=== PATIENT | female | born 1940 | race Hispanic/Latino ===

== ENCOUNTER 2017-04-24 06:09 | Day surgery (SDC) | payer MEDICARE, OTHER ==
[2017-04-14 10:06] VITALS: BMI 25.1
[2017-04-24] MEDS ORDERED: Bupivacaine 0.5% Inj(30mL) IJ ONE (07:16)
[2017-04-24] MEDS ORDERED: Lidocaine 1% Inj (20ml) IJ ONE ×2 (07:16→07:55)
[2017-04-24] MEDS ORDERED: Clindamycin 600 MG in Sodium Chloride 0.9% 100 ML IVPB ONE (07:16)
[2017-04-24] MEDS ORDERED: Sodium Chloride 0.9% 1,000 ML IV SCH (07:30)
[2017-04-24] MEDS ORDERED: Propofol 10 mg/ml Inj (20 ML) ONE (07:52)
[2017-04-24] MEDS ORDERED: Lactated Ringer's 1,000 ML IV ONE (07:55)
--- NOTE | 2017-04-24 07:56 | CP.PCM.PN ---
Subjective - Date & Time of Evaluation Date of Evaluation: 04/24/17 Time of Evaluation: 07:53 - Subjective Subjective: 76 y/o female with PMH of atrial fibrillation seen in SDS. Pt is aware she is having surgery on both feet this morning. Pt admits to having pain in the left foot with a bony prominence for over a year. Pt also states she has had pain in the R foot 4th digit where previously had hammertoe surgery several years ago. Pt states the R 4th digit has been bothering her for over a year as well. Pt denies F/C/N/V/SOB. PSH: multiple foot surgeries B/L, hernia repair, R knee surgery, removal of ovary, breast implant surgery All: Penicillins Social: social EtOH; denies cigarette or illicit drug use Objective - Vital Signs/Intake and Output Vital Signs (last 24 hours): Temp Pulse Resp BP Pulse Ox 97.9 F 54 L 18 135/70 95 04/24/17 06:38 04/24/17 06:38 04/24/17 06:38 04/24/17 06:38 04/24/17 06:38 - Medications Medications: Current Medications Bupivacaine HCl (Marcaine 0.5%) 30 ml IJ ONCE ONE Stop: 04/24/17 07:17 Clindamycin Phosphate 600 mg/ (Sodium Chloride) 54 mls @ 54 mls/hr IVPB ONCE ONE Stop: 04/24/17 08:15 Sodium Chloride (Sodium Chloride 0.9%) 1,000 mls @ 0 mls/hr IV .Q0M EFRAIN PRN Reason: As Directed Stop: 04/25/17 07:16 Lidocaine HCl (Lidocaine 1% (20ml)) 20 ml IJ ONCE ONE Stop: 04/24/17 07:17 - Constitutional Appears: Well, Non-toxic, No Acute Distress - Extremities Exam Additional comments: Vasc: DP/PT 2/4 B/L. CFT < 3 sec to all digits. Temperature gradient warm to cool B/L. No pedal edema Derm: Skin is well-hydrated. No open lesions, no erythema, no interdigital maceration, no clinical signs of infection Neuro: Protective sensation grossly intact Ortho: Adductovarus deformity B/L. Surgical scars fully healed noted to B/L 1st rays, B/L 5th digits, and lesser digits. Tenderness upon palpation of L foot 4th interspace dorsal exostosis. Tenderness upon deep palpation of dorsum of R 4th digit - Neurological Exam Neurological Exam: Alert, Awake, Oriented x3 - Psychiatric Exam Psychiatric exam: Normal Affect, Normal Mood Assessment and Plan - Assessment and Plan (Free Text) Assessment: 76 y/o female with painful L foot 4th interspace dorsal exostosis and R foot painful 4th digit hammertoe Plan: Pt was seen and examined in SDS Pt NPO status was confirmed All Pre-op testing and clearance was in the chart Pt has exhausted all conservative treatment at this time and is opting for surgical intervention Pt was explained procedure and post-operative course All pt's questions were answered to satisfaction No guarantees were made Pt understands all risks, benefits and complications of procedure Pt will follow-up with Dr. Barton
--- NOTE | 2017-04-24 08:03 | CP.SDSHP ---
Same Day Surgery H & P - History Proposed Procedure: exostectomy L 4th dorsal interspace, hammertoe correction R 4th digit Pre-Op Diagnosis: painful L 4th digit dorsal exostosis, painful R 4th digit hammertoe - Previous Medical/Surgical History Cardiac: Other (atrial fibrillation) Pain: 4.Moderate Pain Previous Surgical History: B/L bunion surgery, B/L hammertoes repaired, hernia repair, R knee surgery, removal of ovary, breast implant surgery - Allergies Allergies: Allergies Penicillins Allergy (Verified 04/24/17 06:40) SWELLING - Physical Exam General Appearance: well nourished, NAD Vital Signs: Vital Signs 04/24/17 06:38 Temperature 97.9 F Pulse Rate 54 L Respiratory 18 Rate Blood Pressure 135/70 O2 Sat by Pulse 95 Oximetry Mental Status: Alert & Oriented x3 Neuro: WNL - {Optional Preform as Required} Integument: WNL Ortho: Other (painful R 4th digit with hammertoe deformity, L 4th interspace dorsal exostosis) - Impression Impression: Pt was seen and examined in [facility]. Pt NPO status was confirmed. All Pre-op testing and clearance was in the chart. Pt has exhausted all conservative treatment at this time and is opting for surgical intervention. Pt was explained procedure and post-operative course. All pt's questions were answered to satisfaction. No guarantees were made. Pt understands all risks, benefits and complications of procedure. Pt will follow-up with Dr. Barton - Date & Time Date: 04/24/17 Time: 08:03 Short Stay Discharge - Short Stay Discharge Admitting Diagnosis/Reason for Visit: M20.41 Disposition: HOME/ ROUTINE Referrals: Edilberto Dumont MD [Primary Care Provider] - Follow-up: Dr. Barton's office Instructions: RICE Therapy (GEN) Additional Instructions (Diet, Activity): - Patient evaluated bedside in recovery s/p surgical procedure. - After surgical procedure patient in NAD - (+) Void, (+) Appetite - Capillary refill time <3s and NVSI intact. - Patient denies complaints at this time - Post operative instructions and plan of care explained to patient at length. - Pt. acknowledges understanding. - Patient stable for DC per podiatric surgery Progress Note/Discharge Note with Instructions: Patient in good/stable condition for discharge home. Pt to resume medications per medical reconciliation. Resume regular diet. Please keep dressing clean, dry, & intact to surgical site, use plastic bag over bandage for showering, wear post op shoe at all times when ambulating Call clinic if you see signs of infection (redness, swelling, malodor) Please make an appointment to see Dr. Barton in office/clinic within 1 week for post-op check.
[2017-04-24] MEDS ORDERED: Bupivacaine 0.5% 50 ML IJ ONE (08:20)
[2017-04-24] MEDS ORDERED: Oxycodone/Acetaminophen 5/325 mg Tab PO PRN ×2 (09:09)
[2017-04-24] MEDS ORDERED: Lactated Ringer's 1,000 ML IV SCH (09:11)
--- NOTE | 2017-04-24 09:14 | PCM.SURG1 ---
Surgeon's Initial Post Op Note - Surgeon's Notes Surgeon: Dr. Barton Brass Wind Instrument Maker: Maxine Aguillon PGY-1, Rene Carlisle PGY-1 Type of Anesthesia: General LMA, Local Anesthesia Administered By: Dr. Jauregui Pre-Operative Diagnosis: painful R 4th digit hammertoe, painful L 4th interspace dorsal exostosis Operative Findings: see operative report. I: 11 cc 1% Lidocaine plain pre-op, 9 cc 0.5% Marcaine plain post-op. M: 3-0 Vicryl, 4-0 Vicryl, 4-0 Nylon, 5-0 Nylon. tourniquet time 20 min R, 24 min L Post-Operative Diagnosis: same Operation Performed: R 4th digit hammertoe arthroplasty, L 4th dorsal interspace exostectomy Specimen/Specimens Removed: none Estimated Blood Loss: EBL {In ML}: 1 Blood Products Given: N/A Drains Used: No Drains Post-Op Condition: Good Date of Surgery/Procedure: 04/24/17 Time of Surgery/Procedure: 08:00
[2017-04-24 12:17] VITALS: PULSE 54; RESP 18; TEMP 98.1
[2017-04-24 13:16] VITALS: BP 120/48; O2SAT 95
--- NOTE | 2017-04-24 15:59 | RAD ---
PROCEDURE: Bilateral feet 04/24/2017 HISTORY: Status post bilateral foot surgery COMPARISON: No prior study available for comparison FINDINGS: Left foot findings: The current study reveals joint replacement at the left 1st MTP joint however bony overgrowth surrounding the prosthesis appears have extended into the joint space margin as well with prominent lateral osteophyte arising from the distal margin of left 1st metatarsal. Apparent postoperative fusion changes of the proximal and distal phalanges. Questionable postop changes distal 5th metatarsal. Right foot findings: Joint replacement right 1st MTP joint. There appears to have been partial and or complete resection of the distal phalanx right 1st toe. Slight bony productive changes distal lateral 1st metatarsal is proximal to the prosthesis. . Questionable postoperative changes distal 5th metatarsal. No definitive evidence of cortical destructive changes seen at this time. 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 Exuberant bony overgrowth noted at the level of the left 1st MTP joint. Probable fusion left proximal and distal phalanges 1st toe. Apparent resection of the distal phalanx right 1st toe
--- NOTE | 2017-05-14 01:16 | OP ---
PROCEDURE DATE: 04/24/2017 PREOPERATIVE DIAGNOSES: Painful right fourth digit hammertoe, painful left fifth metatarsal head dorsal exostosis. POSTOPERATIVE DIAGNOSES: Painful right fourth digit hammertoe, painful left fifth metatarsal head dorsal exostosis. NAME OF THE PROCEDURE: Left fifth metatarsal head exostectomy, right fourth digit hammertoe arthroplasty. SURGEON: Dr. Denver Barton, DPM MACHINE GRINDER: Dr. Maxine Aguillon, PGY1 and Dr. Rene Carlisle, PGY1. ANESTHESIA: IV sedation with local. ANESTHESIA ADMINISTERED BY: Dr. Juaregui. INDICATIONS: The patient is a 76-year-old female with the above diagnoses. The patient has exhausted conservative treatment at this time and now requires surgical intervention. The patient signed the consent after careful explanation of risks, benefits, complications and alternatives for the surgical procedure. No guarantees were given nor implied. N.p.o. status was confirmed prior to taking the patient to the OR. PREPARATION: The patient was brought to the operating room and placed on the operating room table in the supine position. After induction of IV sedation, the patient received a total of 11 mL of 1% lidocaine plain in local block fashion to bilateral feet. Once local anesthesia was achieved, the foot was then prepped and draped in usual sterile manner. Pneumatic ankle tourniquet was applied to bilateral ankle and was set at 250 mmHg. DESCRIPTION OF PROCEDURE: Procedure #1: Left fifth metatarsal head exostectomy. Using an Esmarch, left foot was exsanguinated and tourniquet was inflated at 250 mmHg. Attention was driven to the dorsolateral aspect of the fifth metatarsal head where the exostosis was appreciated. Using a marking pen, approximately 2 cm linear longitudinal line was drawn at the level of the exostosis. Using a #15 blade, incision was placed over the planned site. The incision was then deepened through subcutaneous tissue with care being taken to identify and retract all vital neurovascular structures. At this time, the exostosis was visualized at the level of the dorsolateral aspect of the fifth metatarsal head. Using the bone rasp, the exostosis was shaved and smoothened. At this time, bulb syringe was used and the site was copiously flushed and irrigated with normal saline. At this point, subcutaneous tissue was reapproximated and 3-0 Vicryl was used to bring the structures back together. 4-0 nylon was used at this time to reapproximate the skin and the incision site was closed. At this time, the tourniquet from the left leg was deflated at 24 minutes. Procedure #2: Right fourth digit hammertoe arthroplasty. Using an Esmarch, right foot was exsanguinated and tourniquet was inflated at 250 mmHg. Attention was then directed to the dorsal aspect of the fourth digit right foot where a linear longitudinal incision was made extending from PIPJ to the level of MTPJ. The incision was deepened through subcutaneous tissue with care being taken to identify and retract all vital neurovascular structures. At this time, a transverse tenotomy and capsulotomy was performed to the proximal interphalangeal joint of the fourth digit, right foot. The head of the proximal phalanx was then freed from its capsular and ligamentous attachment. Next, utilizing the oscillating saw, the head of the proximal phalanx was resected and passed from the operative site. The wound was then flushed with copious amount of sterile normal saline. At this time, the tendon was brought back together using a 3-0 Vicryl. The skin was reapproximated and brought together using a 5-0 nylon and the incision site was closed. At this time, the tourniquet from the right leg was deflated at 20 minutes. 9 cc in total 0.5% Marcaine plain was injected to bilateral feet. Bilateral feet were then dressed using Betadine-soaked Adaptic, DSD, and Kerlix. Immediate capillary refill time was noted to the right foot, which appeared to be within normal limits. The attending was present during the case. POSTOPERATIVE CONDITION: The patient tolerated the anesthesia and procedure well and was escorted to the recovery room with vital signs stable and neurovascular status intact to bilateral feet. This patient will follow up with Dr. Barton as an outpatient. Maxine Aguillon DPM Denver Barton DPM [facility]OH[facility]
== END 2017-04-24 14:20 | disposition home or self-care (01) ==
LOC: H.OPSURG 06:09
PROVIDERS: ATTEND Podiatrist Foot & Ankle Surgery
DX: M20.41 Other hammer toe(s) (acquired), right foot (principal)
CPT/HCPCS: 28285; 73620; 88304; 88311; J2405; J2704; J3010; J7030; J7120

== ENCOUNTER 2017-12-04 09:26 | Emergency (ER) | payer MEDICARE, OTHER ==
[2017-12-04 09:32] VITALS: BP 147/75; PULSE 57; RESP 20; TEMP 98.5; BMI 24.5
[2017-12-04 09:37] VITALS: O2SAT 98
--- NOTE | 2017-12-04 10:36 | RAD ---
PROCEDURE: Right Hip Radiographs. HISTORY: right hip pain no fall COMPARISON: None. FINDINGS: BONES: No acute fracture. Small ossicle in the region of the right hip joint. JOINTS: Mild narrowing. SOFT TISSUES: Normal. OTHER FINDINGS: None. IMPRESSION: No demonstrated fracture or dislocation. Small ossicle in the region of the right hip joint.
--- NOTE | 2017-12-04 12:43 | ED PDOC ---
Lower Extremity Pain/Injury Time Seen by Provider: 12/04/17 09:40 Chief Complaint (Nursing): Lower Extremity Problem/Injury Chief Complaint (Provider): right side of the hip pain History Per: Patient History/Exam Limitations: no limitations Onset/Duration Of Symptoms: Days (12/04/17) Additional Complaint(s): 77 year old female with a past medical history of hypertension presents to the ED complaining of pain on the right side of the hip and butt onset today morning when she tried to turn in bed. Reports the pain becomes worse when she bears weight by standing or movement. States she feels better when she lays down. Denies any other pain, injuries, shortness of breath, or chest pain. PMD: Nikita Mckeon III, MD - Hip Currently Unable To: Bear Weight, Bend Or Move Past Medical History Reviewed: Historical Data, Nursing Documentation, Vital Signs Vital Signs: Last Vital Signs Temp 98.5 F 12/04/17 09:30 Pulse 57 L 12/04/17 09:30 Resp 20 12/04/17 09:30 BP 147/75 12/04/17 09:30 Pulse Ox 98 12/04/17 09:34 - Medical History PMH: Arthritis, Atrial Fibrillation, Bronchitis, HTN, Seizures Denies: Chronic Kidney Disease - Surgical History Surgical History: Appendectomy, Tonsillectomy - Family History Family History: States: Unknown Family Hx - Immunization History Hx Pneumococcal Vaccination: Yes - Home Medications Home Medications: Ambulatory Orders Medication Instructions Recorded Albuterol Sulfate [Albuterol Hfa] 0.09 mg IH Q4 PRN #1 ml 04/13/15 Digoxin [Digitek] 0.375 mg PO DAILY 04/13/15 Levetiracetam [Keppra] 500 mg PO Q12H 04/13/15 Propafenone HCl [Rythmol Sr] 425 mg PO BID 04/13/15 Rivaroxaban [Xarelto] 20 mg PO QPM 04/13/15 - Allergies Allergies/Adverse Reactions: Allergies Allergy/AdvReac Type Severity Reaction Status Date / Time Penicillins Allergy SWELLING Verified 12/04/17 09:34 Review of Systems ROS Statement: Except As Marked, All Systems Reviewed And Found Negative Cardiovascular: Negative for: Chest Pain Respiratory: Negative for: Shortness of Breath Musculoskeletal: Positive for: Other (right hip pain) Physical Exam - Reviewed Nursing Documentation Reviewed: Yes Vital Signs Reviewed: Yes - Physical Exam Appears: Positive for: Well, Non-toxic, No Acute Distress Head Exam: Positive for: ATRAUMATIC, NORMAL INSPECTION, NORMOCEPHALIC Skin: Positive for: Normal Color, Warm, Dry Eye Exam: Positive for: EOMI, Normal appearance, PERRL ENT: Positive for: Normal ENT Inspection Neck: Positive for: Normal, Painless ROM, Supple. Negative for: Decreased ROM Cardiovascular/Chest: Positive for: Regular Rate, Rhythm. Negative for: Murmur Respiratory: Positive for: Normal Breath Sounds. Negative for: Decreased Breath Sounds, Accessory Muscle Use, Wheezing, Respiratory Distress Gastrointestinal/Abdominal: Positive for: Normal Exam, Bowel Sounds, Soft. Negative for: Tenderness, Guarding, Rebound Back: Positive for: Normal Inspection. Negative for: L CVA Tenderness, R CVA Tenderness Extremity: Positive for: Normal ROM, Tenderness (right-side of hip (bottom butt) ). Negative for: Swelling Neurologic/Psych: Positive for: Alert, Oriented (x3). Negative for: Motor/ Sensory Deficits - ECG O2 Sat by Pulse Oximetry: 98 (RA) Pulse Ox Interpretation: Normal Medical Decision Making Medical Decision Making: Time: 0956 Initial Impression: Atraumatic Hip Pain Differential Diagnosis includes but is not limited to: Musculoskeletal pain less likely fracture or dislocation Initial Plan: --Motrin 400mg --HIP MIN 2V w/ Pelvis RT [RAD] --Reevaluation Time: 1034 PROCEDURE: Right Hip Radiographs. FINDINGS: BONES: No acute fracture. Small ossicle in the region of the right hip joint. JOINTS: Mild narrowing. SOFT TISSUES: Normal. OTHER FINDINGS: None. IMPRESSION: No demonstrated fracture or dislocation. Small ossicle in the region of the right hip joint. Time: 1140 Patient improved after Motrin and can ambulate in ED with steady gait. Clinical Impression: Hip Pain Upon provider evaluation patient is medically stable, and requires no further treatment in the ED at this time. Patient will be discharged. Counseling was provided and all questions were answered regarding diagnosis and need for follow up with PMD. There is agreement to discharge plan. Return if symptoms persist or worsen. Scribe Attestation: Documented by Juan C Pelletier, acting as a scribe for Bev Victor MD Provider Scribe Attestation: All medical record entries made by the Scribe were at my direction and personally dictated by me. I have reviewed the chart and agree that the record accurately reflects my personal performance of the history, physical exam, medical decision making, and the department course for this patient. I have also personally directed, reviewed, and agree with the discharge instructions and disposition. Disposition - Clinical Impression Clinical Impression: Hip pain, right - Patient ED Disposition Is Patient to be Admitted: No - Disposition Referrals: Nikita Mckeon III, MD [Staff Provider] - Disposition: Routine/Home Disposition Time: 11:58 Condition: GOOD Additional Instructions: Take motrin or alleve for pain. Apply ice cold patches to affected area. Follow up with your PCP in 2-3 days. Instructions: Hip Pain Forms: [employer] (Greek)
== END 2017-12-04 12:12 | disposition home or self-care (01) ==
LOC: H.ER 09:26
DX: M25.551 Pain in right hip (principal); I10 Essential (primary) hypertension; Z88.0 Allergy status to penicillin